=== PATIENT | female | born 1980 | race American Indian/Alaskan Native ===

== ENCOUNTER 2019-11-08 17:25 | Emergency (ER) | payer MEDICARE ==
--- NOTE | 2019-11-08 17:37 | Event Note ---
ED Screening Note Date of service: 11/08/19 Time: 17:36 ED Screening Note: 38 y o female presents with left shoulder back pain thats worsening with taking a deep breath This initial assessment/diagnostic orders/clinical plan/treatment(s) is/are subject to change based on patients health status, clinical progression and re- assessment by fellow clinical providers in the ED. Further treatment and workup at subsequent clinical providers discretion. Patient/guardian urged not to elope from the ED as their condition may be serious if not clinically assessed and managed. Initial orders include: cxr
--- NOTE | 2019-11-08 18:03 | XRay Report ---
CHEST 2 VIEWS INDICATION / CLINICAL INFORMATION: pain. COMPARISON: None available. FINDINGS: SUPPORT DEVICES: None. HEART / MEDIASTINUM: No significant abnormality. LUNGS / PLEURA: No significant pulmonary or pleural abnormality. No pneumothorax. ADDITIONAL FINDINGS: No significant additional findings. IMPRESSION: 1. No acute findings. Signer Name: Ac Butler MD Signed: 11/08/2019 5:59 PM Workstation Name: [id number]
[2019-11-08] MEDS ORDERED: KETOROLAC 30 MG/1 ML INJ IM ONE (18:47)
[2019-11-08] MEDS ORDERED: predniSONE 20 MG TAB PO ONE (18:47)
--- NOTE | 2019-11-08 19:21 | Emergency Department Report ---
ED Back Pain/Injury HPI - General Chief Complaint: Back Pain/Injury Stated Complaint: BODY PAIN Source: patient Limitations: No Limitations - History of Present Illness Initial Comments: Patient is a 38-year-old female with a history of chronic iron deficiency anemia who presents to the ED with complaint of acute onset persistent nontraumatic thoracic pain that gets worse with movement or deep inhalation for the last 12 loss. Patient states that she has been sleeping or laying around in the bed for the last 48 hours just relaxing and watching TV and has not had any fall, traumatic injury, heavy lifting, twisting or chest pain, shortness of breath, neck pain, dizziness, numbness and tingling or weakness of upper and lower extremities bilaterally, headache, cough, fever, chills, nausea and vomiting. Patient states that she ran out of her iron pills a few months ago and has noticed that she eats a lot of ice nowadays and would like a refill on this exam. MD Complaint: back pain (Posterior mid-posterior thoracic pain), other -: Sudden, hour(s) (12) Similar Symptoms Previously: No Place: home Radiation: none Severity: moderate Severity scale (0 -10): 6 Quality: sharp, aching Consistency: constant Improves With: none Worsens With: movement, walking Context: turning/twisting Associated Symptoms: denies other symptoms. denies: confusion, weakness, chest pain, numbness, difficulty walking, cough, difficulty urinating, diaphoresis, incontinence, constipation, abdominal pain, loss of appetite, malaise, nausea/vomiting, rash, seizure, shortness of breath, syncope - Related Data Previous Rx's Medication Instructions Recorded Last Taken Type Cyclobenzaprine [Flexeril] 10 mg PO Q8H PRN #15 tablet 11/08/19 Unknown Rx Ferrous Sulfate [Ferrous Sulfate 324 mg PO DAILY #60 tablet. 11/08/19 Unknown Rx 324 MG] Ibuprofen [Motrin] 800 mg PO Q8HR PRN #30 tablet 11/08/19 Unknown Rx predniSONE [Deltasone] 40 mg PO QDAY #10 tab 11/08/19 Unknown Rx Allergies Allergy/AdvReac Type Severity Reaction Status Date / Time No Known Allergies Allergy Unverified 11/08/19 17:39 ED Review of Systems ROS: Stated complaint: BODY PAIN Other details as noted in HPI Constitutional: denies: chills, fever Eyes: denies: eye pain, eye discharge, vision change ENT: denies: ear pain, throat pain Respiratory: denies: cough, shortness of breath, wheezing Cardiovascular: denies: chest pain, palpitations Endocrine: no symptoms reported Gastrointestinal: denies: abdominal pain, nausea, vomiting, diarrhea Genitourinary: denies: urgency, dysuria, discharge Musculoskeletal: back pain (Mid posterior thoracic pain). denies: joint swelling, arthralgia Skin: denies: rash, lesions Neurological: denies: headache, weakness, paresthesias Psychiatric: denies: anxiety, depression Hematological/Lymphatic: denies: easy bleeding, easy bruising ED Past Medical Hx - Past Medical History Previous Medical History?: No - Surgical History Past Surgical History?: Yes Additional Surgical History: 4 c-sections - Medications Home Medications: Home Medications Medication Instructions Recorded Confirmed Last Taken Type Cyclobenzaprine [Flexeril] 10 mg PO Q8H PRN #15 tablet 11/08/19 Unknown Rx Ferrous Sulfate [Ferrous Sulfate 324 mg PO DAILY #60 tablet.dr 11/08/19 Unknown Rx 324 MG] Ibuprofen [Motrin] 800 mg PO Q8HR PRN #30 tablet 11/08/19 Unknown Rx predniSONE [Deltasone] 40 mg PO QDAY #10 tab 11/08/19 Unknown Rx ED Physical Exam - General Limitations: No Limitations General appearance: alert, in no apparent distress - Head Head exam: Present: atraumatic, normocephalic, normal inspection - Eye Eye exam: Present: normal appearance, PERRL, EOMI Pupils: Present: normal accommodation - ENT ENT exam: Present: normal exam, normal orophraynx, mucous membranes moist, TM's normal bilaterally, normal external ear exam - Neck Neck exam: Present: normal inspection, full ROM - Respiratory Respiratory exam: Present: normal lung sounds bilaterally. Absent: respiratory distress, wheezes, rales, rhonchi, chest wall tenderness, accessory muscle use, prolonged expiratory - Cardiovascular Cardiovascular Exam: Present: regular rate, normal rhythm, normal heart sounds. Absent: systolic murmur, diastolic murmur, rubs, gallop - GI/Abdominal GI/Abdominal exam: Present: soft, normal bowel sounds. Absent: tenderness, guarding, hyperactive bowel sounds - Extremities Exam Extremities exam: Present: normal inspection, full ROM, normal capillary refill - Back Exam Back exam: Present: normal inspection, full ROM, tenderness (palpable posterior mid thoracic paraspinal musculoskeletal tenderness), muscle spasm, paraspinal tenderness - Neurological Exam Neurological exam: Present: alert, oriented X3, CN II-XII intact, normal gait, reflexes normal - Psychiatric Psychiatric exam: Present: normal affect, normal mood - Skin Skin exam: Present: warm, dry, intact, normal color. Absent: rash ED Course Vital Signs 11/08/19 17:37 Temperature 97.5 F L Pulse Rate 95 H Respiratory 18 Rate Blood Pressure 150/62 [Right] O2 Sat by Pulse 100 Oximetry ED Medical Decision Making - Radiology Data Radiology results: report reviewed, image reviewed Chest x-ray shows no acute cardiopulmonary abnormalities or pneumonitis. - Medical Decision Making This is a 38-year-old [place] female who presented to the ED with nontraumatic mid posterior thoracic pain for 12 hours. In the ED, patient is alert and oriented 3 and is not in distress. Chest x-ray shows no acute cardiopulmonary abnormalities or pneumonitis. Patient was treated for pain and discharged home on pain medications and muscle relaxants. Patient's symptoms are likely due to muscle spasm, muscle strain of midposterior thoracic paraspinal muscles. Patient was advised to follow-up with her primary care physician in 5-7 days for reevaluation or return to the ED immediately if symptoms get worse. - Differential Diagnosis Muscle spasm; Muscle strain; Pneumonia; Critical care attestation.: If time is entered above; I have spent that time in minutes in the direct care of this critically ill patient, excluding procedure time. ED Disposition Clinical Impression: Strain of muscle and tendon of back wall of thorax, initial encounter, Spasm of thoracic back muscle, Chronic iron deficiency anemia Disposition: DC-01 TO HOME OR SELFCARE Is pt being admited?: No Does the pt Need Aspirin: No Condition: Stable Instructions: Muscle Strain (ED), Muscle Spasm (ED) Additional Instructions: Take medication with food, drink plenty of fluids and follow-up with your primary care physician in 5-7 days for reevaluation. Return to the ED immediately if symptoms get worse. Prescriptions: predniSONE [Deltasone] 40 mg PO QDAY #10 tab Ferrous Sulfate [Ferrous Sulfate 324 MG] 324 mg PO DAILY #60 tablet. Cyclobenzaprine [Flexeril] 10 mg PO Q8H PRN #15 tablet PRN Reason: Muscle Spasm Ibuprofen [Motrin] 800 mg PO Q8HR PRN #30 tablet PRN Reason: Pain , Severe (7-10) Referrals: [facility] [Outside] - 7-10 days Time of Disposition: 19:18 Print Language: PARAGUAYAN
[2019-11-08 19:41] VITALS: BP 134/85
== END 2019-11-08 19:42 | disposition home or self-care (01) ==
LOC: ED 17:25
DX: S29.012A Strain of muscle and tendon of back wall of thorax, initial encounter (principal); M62.838 Other muscle spasm; D50.9 Iron deficiency anemia, unspecified; G89.29 Other chronic pain; Z98.890 Other specified postprocedural states; Z79.899 Other long term (current) drug therapy; X58.XXXA Exposure to other specified factors, initial encounter; Y93.89 Activity, other specified; Y92.89 Other specified places as the place of occurrence of the external cause; Y99.8 Other external cause status
CPT/HCPCS: 71046; 96372; 99283; J1885; J7512

== ENCOUNTER 2019-12-03 12:38 | Emergency (ER) | payer MEDICARE ==
--- NOTE | 2019-12-03 12:53 | Event Note ---
ED Screening Note Date of service: 12/03/19 Time: 12:52 ED Screening Note: Pt complains of chest tightness, body aches, and painful urination x 1.5 months This initial assessment/diagnostic orders/clinical plan/treatment(s) is/are subject to change based on patients health status, clinical progression and re- assessment by fellow clinical providers in the ED. Further treatment and workup at subsequent clinical providers discretion. Patient/guardian urged not to elope from the ED as their condition may be serious if not clinically assessed and managed. Initial orders include: CXR UA
--- NOTE | 2019-12-03 13:48 | XRay Report ---
CHEST 2 VIEWS INDICATION: MAIN: cough for 1 week. COMPARISON: 11/08/2019. FINDINGS: Support devices: None. Heart: Within normal limits. Lungs/Pleura: No acute air space or interstitial disease. No significant pleural effusion. IMPRESSION: No acute findings. Signer Name: Tom Zamarripa MD Signed: 12/03/2019 1:44 PM Workstation Name: [id number]
[2019-12-03 13:59] LABS: Bilirubin,Urine NEG (Negative); Blood,Urine SM (Negative); Color,Urine Yellow (Yellow); Mucus,Urine FEW /HPF; Protein,Urine <15 mg/dL mg/dL (Negative); Urobilinogen,Urine < 2.0 mg/dL (<2.0)
--- NOTE | 2019-12-03 18:07 | Emergency Department Report ---
<FANNY MCLAUGHLIN - Last Filed: 12/03/19 19:17> ED General Adult HPI - General Chief complaint: Upper Respiratory Infection Stated complaint: BODYACHE Time Seen by Provider: 12/03/19 12:52 Source: patient Mode of arrival: Ambulatory Limitations: No Limitations - History of Present Illness Initial comments: Patient is a 38-year-old female presents emergency room with complaints of pain with taking a deep breath for the last month. She states that she also has associated body aches, dry cough, intermittent chills. She denies any chest pain without breathing. She denies any leg swelling, nausea, vomiting, fever, abdominal pain. She states that she has also had vaginal discharge and dysuria for a month. She denies any past medical history. She denies any allergies medications. She states her last menstrual cycle was 11/04/2019. - Related Data Previous Rx's Medication Instructions Recorded Last Taken Type Cyclobenzaprine [Flexeril] 10 mg PO Q8H PRN #15 tablet 11/08/19 Unknown Rx Ferrous Sulfate [Ferrous Sulfate 324 mg PO DAILY #60 tablet.dr 11/08/19 Unknown Rx 324 MG] Ibuprofen [Motrin] 800 mg PO Q8HR PRN #30 tablet 11/08/19 Unknown Rx predniSONE [Deltasone] 40 mg PO QDAY #10 tab 11/08/19 Unknown Rx Azithromycin [Zithromax Z-KATELYN] 250 mg PO DAILY #6 tablet 12/03/19 Unknown Rx Cetirizine HCl [Zyrtec 10mg tab] 10 mg PO DAILY #30 tablet 12/03/19 Unknown Rx Ibuprofen [Motrin] 800 mg PO Q8HR PRN #24 tablet 12/03/19 Unknown Rx methylPREDNISolone [Medrol 4MG 4 mg PO DAILY #21 tab.ds.pk 12/03/19 Unknown Rx DOSEPAK (21 tabs)] metroNIDAZOLE [Flagyl] 500 mg PO Q12HR #14 tab 12/03/19 Unknown Rx Allergies Allergy/AdvReac Type Severity Reaction Status Date / Time No Known Allergies Allergy Unverified 11/08/19 17:39 ED Review of Systems Comment: All other systems reviewed and negative ED Past Medical Hx - Past Medical History Previous Medical History?: No - Surgical History Past Surgical History?: Yes Additional Surgical History: 4 c-sections - Social History Smoking Status: Never Smoker - Medications Home Medications: Home Medications Medication Instructions Recorded Confirmed Last Taken Type Cyclobenzaprine [Flexeril] 10 mg PO Q8H PRN #15 tablet 11/08/19 Unknown Rx Ferrous Sulfate [Ferrous Sulfate 324 mg PO DAILY #60 tablet.dr 11/08/19 Unknown Rx 324 MG] Ibuprofen [Motrin] 800 mg PO Q8HR PRN #30 tablet 11/08/19 Unknown Rx predniSONE [Deltasone] 40 mg PO QDAY #10 tab 11/08/19 Unknown Rx Azithromycin [Zithromax Z-KATELYN] 250 mg PO DAILY #6 tablet 12/03/19 Unknown Rx Cetirizine HCl [Zyrtec 10mg tab] 10 mg PO DAILY #30 tablet 12/03/19 Unknown Rx Ibuprofen [Motrin] 800 mg PO Q8HR PRN #24 tablet 12/03/19 Unknown Rx methylPREDNISolone [Medrol 4MG 4 mg PO DAILY #21 tab.ds.pk 12/03/19 Unknown Rx DOSEPAK (21 tabs)] metroNIDAZOLE [Flagyl] 500 mg PO Q12HR #14 tab 12/03/19 Unknown Rx ED Physical Exam - General Limitations: No Limitations General appearance: alert, in no apparent distress - Head Head exam: Present: atraumatic, normocephalic - Eye Eye exam: Present: normal appearance - ENT ENT exam: Present: mucous membranes moist - Respiratory Respiratory exam: Present: normal lung sounds bilaterally. Absent: respiratory distress, wheezes, rales, rhonchi, stridor, chest wall tenderness, accessory muscle use, decreased breath sounds, prolonged expiratory - Cardiovascular Cardiovascular Exam: Present: regular rate, normal rhythm, normal heart sounds. Absent: systolic murmur, diastolic murmur, rubs, gallop - GI/Abdominal GI/Abdominal exam: Present: soft, normal bowel sounds. Absent: distended, tenderness, guarding, rebound, rigid - Neurological Exam Neurological exam: Present: alert, oriented X3 - Psychiatric Psychiatric exam: Present: normal affect, normal mood - Skin Skin exam: Present: warm, dry, intact ED Medical Decision Making - EKG Data EKG shows normal: sinus rhythm, axis, intervals, QRS complexes, ST-T waves Rate: normal - Medical Decision Making 7:15 PM. pt signed out to Francis Cherry PA-C pending labs, wet prep results ED Disposition Clinical Impression: Bacterial vaginosis Acute bronchitis Qualifiers: Bronchitis organism: other organism Qualified Code(s): J20.8 - Acute bronchitis due to other specified organisms Disposition: - TO HOME OR SELFCARE Condition: Stable Instructions: Acute Bronchitis (ED), Bacterial Vaginosis (ED) Additional Instructions: Take medications with food, drink plenty of fluids and follow-up with your primary care physician in 5-7 days for reevaluation. Return to the ED immediately if symptoms get worse. Prescriptions: metroNIDAZOLE [Flagyl] 500 mg PO Q12HR #14 tab methylPREDNISolone [Medrol 4MG DOSEPAK (21 tabs)] 4 mg PO DAILY #21 tab.ds.pk Ibuprofen [Motrin] 800 mg PO Q8HR PRN #24 tablet PRN Reason: Pain , Severe (7-10) Azithromycin [Zithromax Z-KATELYN] 250 mg PO DAILY #6 tablet Cetirizine HCl [Zyrtec 10mg tab] 10 mg PO DAILY #30 tablet Referrals: ABEL OLIVARES MD [Primary Care Provider] - 7-10 days Forms: STI Treatment and Prevention Print Language: ICELANDIC <FRANCIS CHERRY - Last Filed: 12/03/19 22:41> ED Review of Systems ROS: Stated complaint: BODYACHE Other details as noted in HPI ED Course Vital Signs 12/03/19 12/03/19 12/03/19 12:52 20:28 20:58 Temperature 97.6 F Pulse Rate 107 H Respiratory 20 16 16 Rate Blood Pressure 165/87 O2 Sat by Pulse 100 Oximetry ED Medical Decision Making - Lab Data Result diagrams: 12/03/19 19:02 12/03/19 19:02 - Radiology Data Radiology results: report reviewed, image reviewed Chest x-ray report was reviewed and shows no acute cardiopulmonary abnormalities or pneumonitis. Chest CTA report was also reviewed and shows no acute PE or pneumonitis. - Medical Decision Making I assumed care the patient from Fanny Mclaughlin PA-C at shift change at 1900 hrs. briefly, patient had presented to the ED record and/or acute onset persistent nasal and sinus congestion with dry cough and pleuritic chest pain. Patient had also presented to the ED with persistent vaginal discharge. Lab test results were reviewed and are nonactionable including urinalysis but the d-dimer was elevated. Wet prep shows significant Gardnerella vaginalis. Chest x-ray shows no acute cardiopulmonary normalities. Chest CTA report was reviewed and shows no acute PE or pneumonitis or any other cardiopulmonary abnormalities. On reevaluation, patient is alert and oriented 3 and is not in distress. Patient was discharged home on medications and advised to follow-up with her primary care physician in 7-10 days for reevaluation or return to the ED immediately if symptoms get worse. - Differential Diagnosis Bronchitis; URI; PE; Pneumonia; UTI; STD; Bacterial vaginosis Critical care attestation.: If time is entered above; I have spent that time in minutes in the direct care of this critically ill patient, excluding procedure time. ED Disposition Is pt being admited?: No Does the pt Need Aspirin: No Time of Disposition: 22:38
[2019-12-03] MEDS ORDERED: AZITHROMYCIN 1 GM ORAL PWDR PACKET PO ONE (19:46)
[2019-12-03] MEDS ORDERED: LIDOCAINE-MPF (1%) 10 MG/1 ML VIAL 5 ML INFILTRATI ONE (19:46)
[2019-12-03 19:47] LABS: Hematocrit 26.5 % (30.3-42.9); Hemoglobin 8.1 gm/dl (10.1-14.3); Mean Corpuscular HGB Conc 31 % (30-34); Platelet Count 472 K/mm3 (140-440); Red Blood Count 4.31 M/mm3 (3.65-5.03)
[2019-12-03 19:48] LABS: Mean Corpuscular Volume 61 fl (79-97); Red Cell Distribution Width 21.2 % (13.2-15.2)
[2019-12-03 19:50] LABS: Lymphocytes % (Auto) 30.3 % (13.4-35.0); Monocytes % (Auto) 9.8 % (0.0-7.3)
[2019-12-03 19:51] LABS: BUN/Creatinine Ratio 8; Basophils % (Auto) 0.5 % (0.0-1.8); Blood Urea Nitrogen 6 mg/dL (7-17); Calcium 9.1 mg/dL (8.4-10.2); Eosinophils % (Auto) 0.7 % (0.0-4.3); Hemolysis Index 4; Lymphocytes # (Auto) 2.4 K/mm3 (1.2-5.4); Monocytes # (Auto) 0.8 K/mm3 (0.0-0.8)
[2019-12-03 19:52] LABS: Eosinophils # (Auto) 0.1 K/mm3 (0.0-0.4)
[2019-12-03] MEDS ORDERED: KETOROLAC 30 MG/1 ML INJ IV ONE (20:12)
--- NOTE | 2019-12-03 22:23 | Cat Scan Report ---
CT angio chest INDICATION / CLINICAL INFORMATION: chest pain, tachycardia, elevated D-dimer. TECHNIQUE: Axial CT images were obtained after injection of Omnipaque 350, 100 cc IV contrast using CTA protocol . 3 plane MIP / 3D reconstructions were produced. All CT scans at this location are performed using C T dose reduction for ALARA by means of automated exposure control. COMPARISON: None available. FINDINGS: Lungs contain no mass, suspicious infiltrate or pleural fluid. A small focus of scarring with adjacen t inflammatory appearing nodularity is seen at the right middle lobe. No mediastinal mass or adenopathy. Imaging of the upper abdomen is unremarkable. Negative for aneurysm, dissection or pulmonary embolus. IMPRESSION: Negative for pneumonia or pulmonary embolus. Signer Name: Tom Zamarripa MD Signed: 12/03/2019 10:19 PM Workstation Name: [id number]
[2019-12-04 01:22] VITALS: BP 154/83
== END 2019-12-03 22:54 | disposition home or self-care (01) ==
LOC: ED 12:38
DX: N76.0 Acute vaginitis (principal); J20.9 Acute bronchitis, unspecified; Z79.899 Other long term (current) drug therapy
CPT/HCPCS: 36415; 71046; 71275; 80048; 81001; 84484; 84703; 85025; 85379; 87210; 87591; 93005; 93010; 96372; 96374; 99285; J0696; J1885; Q9967